=== PATIENT | female | born 1995 ===

== ENCOUNTER → 2020-06-30 | Outpatient (CLI) | payer OTHER | LOC: MHCPAIN 10:25 | DX: M47.817 Spondylosis without myelopathy or radiculopathy, lumbosacral region (principal); M54.5 Low back pain; M53.3 Sacrococcygeal disorders, not elsewhere classified; G89.29 Other chronic pain; M54.16 Radiculopathy, lumbar region | CPT/HCPCS: G0463 ==

== ENCOUNTER → 2020-07-01 | Outpatient (CLI) | payer OTHER | LOC: MHCPAIN 10:57 | DX: M47.817 Spondylosis without myelopathy or radiculopathy, lumbosacral region (principal); M54.5 Low back pain; M53.3 Sacrococcygeal disorders, not elsewhere classified | CPT/HCPCS: J1100; Q9967 ==

== ENCOUNTER → 2020-07-20 | Outpatient (CLI) | payer OTHER | LOC: MHCPAIN 12:56 | DX: M47.817 Spondylosis without myelopathy or radiculopathy, lumbosacral region (principal); M54.5 Low back pain; M53.3 Sacrococcygeal disorders, not elsewhere classified; M54.16 Radiculopathy, lumbar region; G89.29 Other chronic pain | CPT/HCPCS: G0463 ==

== ENCOUNTER → 2020-08-24 | Outpatient (CLI) | payer OTHER | LOC: MHCPAIN 13:31 | DX: M47.817 Spondylosis without myelopathy or radiculopathy, lumbosacral region (principal); M54.5 Low back pain; M53.3 Sacrococcygeal disorders, not elsewhere classified; G89.29 Other chronic pain; M54.16 Radiculopathy, lumbar region | CPT/HCPCS: G0463 ==

== ENCOUNTER → 2020-08-26 | Outpatient (CLI) | payer OTHER | LOC: MHCPAIN 07:55 | DX: M47.817 Spondylosis without myelopathy or radiculopathy, lumbosacral region (principal); M54.16 Radiculopathy, lumbar region | CPT/HCPCS: J1100 ==

== ENCOUNTER → 2020-09-15 | Outpatient (CLI) | payer OTHER | LOC: MHCPAIN 08:28 | DX: M47.817 Spondylosis without myelopathy or radiculopathy, lumbosacral region (principal); M54.5 Low back pain; M53.3 Sacrococcygeal disorders, not elsewhere classified; G89.29 Other chronic pain; M54.16 Radiculopathy, lumbar region | CPT/HCPCS: G0463 ==

== ENCOUNTER → 2020-09-16 | Outpatient (CLI) | payer OTHER | LOC: MHCPAIN 09:43 | DX: M47.817 Spondylosis without myelopathy or radiculopathy, lumbosacral region (principal); M54.16 Radiculopathy, lumbar region | CPT/HCPCS: J1100; Q9967 ==

== ENCOUNTER → 2020-09-27 | Outpatient (CLI) | payer OTHER | LOC: MHCPAIN 10:51 | DX: M47.817 Spondylosis without myelopathy or radiculopathy, lumbosacral region (principal); M54.5 Low back pain; M53.3 Sacrococcygeal disorders, not elsewhere classified; G89.29 Other chronic pain | CPT/HCPCS: G0463 ==

== ENCOUNTER 2020-12-10 20:59 | Emergency (ER) | payer OTHER ==
[~2020-12-10] VITALS: Ht 165.1 cm; Wt 65.9 kg
[2020-12-10 21:14] VITALS: TEMP 97.9
[2020-12-10] MEDS ORDERED: SENNA-LAX8.6 MG PO (21:38)
[2020-12-10] MEDS ORDERED: MAGCITRATE PO (21:38)
[2020-12-10] MEDS ORDERED: COLACE 100100 MG/CAP PO (21:38)
[2020-12-10 21:52] VITALS: BP 122/70; PULSE 66
== END 2020-12-10 21:52 | disposition home or self-care (01) ==
LOC: COL.ER 20:59
DX: K59.00 Constipation, unspecified (principal)

== ENCOUNTER 2020-12-24 15:13 | Emergency (ER) | payer OTHER ==
[~2020-12-24] VITALS: Ht 165.1 cm; Wt 65.9 kg
[~2020-12-24 15:13] MED LIST: COLACE 100100 MG/CAP PO; MAGCITRATE PO; SENNA-LAX8.6 MG PO
[2020-12-24 15:22] VITALS: TEMP 98.2
[2020-12-24 16:01] LABS: BASO % 0.4 % (0.0-2.0); EOS # 0.2 (0.0-0.7); EOS % 2.7 % (0-4.0); GRAN # 3.7 (1.4-6.5); GRAN % 52.3 % (42.2-75.2); HEMATOCRIT 39.6 % (37.0-47.0); HEMOGLOBIN 12.9 g/dl (12.5-16.0); LYMPH # 2.5 (1.2-3.4); LYMPH % 35.9 % (20.0-51.0); MEAN CELL VOLUME 89 fl (80.0-100.0); MEAN CORPUSCULAR HEMOGLOBIN 29 pg (27.0-31.0); MEAN CORPUSCULAR HGB CONC 33 g/dl (33.0-37.0); MONO # 0.6 (0.1-0.6); MONO % 8.4 % (1.7-9.3); PLATELET COUNT 156 K/mm3 (130-400); RED BLOOD COUNT 4.45 M/mm3 (4.10-5.30)
[2020-12-24 16:12] LABS: ALBUMIN 4.3 gm/dL (3.5-5.0); BILIRUBIN,TOTAL 0.6 mg/dL (0.0-1.0); CALCIUM 9.6 mg/dL (8.4-10.2); CREATININE, serum 0.79 (0.52-1.25); POTASSIUM 3.9 mmol/L (3.4-5.0); TOTAL PROTEIN 7.3 gm/dL (6.4-8.2)
[2020-12-24 16:40] VITALS: BP 108/75; PULSE 65
== END 2020-12-24 16:40 | disposition home or self-care (01) ==
LOC: COL.ER 15:13
PROVIDERS: Nurse Practitioner Primary Care
DX: K59.09 Other constipation (principal); Z87.891 Personal history of nicotine dependence
CPT/HCPCS: J7030

== ENCOUNTER 2021-03-09 09:00 | Outpatient (RCR) | payer OTHER | END 2021-03-17 | disposition home or self-care (01) | LOC: MKS.ESL.PT | DX: M43.17 Spondylolisthesis, lumbosacral region (principal); M51.37 Other intervertebral disc degeneration, lumbosacral region; Z98.1 Arthrodesis status ==

== ENCOUNTER 2021-04-29 10:00 | Outpatient (RCR) | payer OTHER | END 2021-06-23 | disposition home or self-care (01) | LOC: MKS.ESL.PT | DX: R10.2 Pelvic and perineal pain (principal); R33.9 Retention of urine, unspecified; Z98.1 Arthrodesis status ==